=== PATIENT | female | born 1935 | race Two or more races ===

== ENCOUNTER 2023-05-17 21:57 | Emergency (ER) | payer OTHER ==
[~2023-05-17] VITALS: Ht 160 cm; Wt 69.9 kg
[2023-05-17] MEDS ORDERED: ECOTRIN81 MG (22:07)
[2023-05-17] MEDS ORDERED: ABANEU-SL TABL1 EACH (22:07)
[2023-05-17] MEDS ORDERED: SIMVASTATIN5 MG (22:08)
[2023-05-17] MEDS ORDERED: BENZONATATE150 MG (22:08)
[2023-05-17] MEDS ORDERED: LASIX20 MG (22:08)
[2023-05-17] MEDS ORDERED: AZOR 10-40 MG1 EACH (22:09)
[2023-05-17] MEDS ORDERED: FOLIC ACID0.8 M1 (22:09)
[2023-05-17] MEDS ORDERED: OPTIMAL D31250 MCG PO (22:09)
[2023-05-17] MEDS ORDERED: JENTADUETO 2.51 EACH PO (22:10)
[2023-05-17] MEDS ORDERED: SYNTHROID50 MCG PO (22:10)
[2023-05-17] MEDS ORDERED: CONZIP100 MG (22:10)
[2023-05-18] LABS: HEMOGLOBIN 10.3 g/dL (12.0-15.00); MEAN CELL VOLUME 78.8 fL (80.00-100.00); MEAN CORPUSCULAR HEMOGLOBIN 24.6 pg (27.00-32.0); MEAN CORPUSCULAR HGB CONC 31.2 g/dl (32.0-36.0); PLATELET COUNT 554 K/uL (150-450); RED BLOOD COUNT 4.18 M/uL (4.00-6.00); RED CELL DISTRIBUTION WIDTH 18.2 % (11.5-14.5)
[2023-05-18 00:21] LABS: ALBUMIN 2.4 gm/dL (3.4-5.0); BILIRUBIN TOTAL 0.58 mg/dL (0.3-1.2); CALCIUM 9.4 mg/dL (8.5-10.1); CREATININE SERUM 1.8 mg/dL (0.55-1.02); GFR 26.61; POTASSIUM 4.63 mEq/L (3.5-5.1); TOTAL PROTEIN 7.4 gm/dL (6.4-8.2)
== END 2023-05-18 06:15 | disposition home or self-care (01) ==
LOC: ER 21:57
PROVIDERS: General Practice
DX: R11.2 Nausea with vomiting, unspecified (principal); E11.9 Type 2 diabetes mellitus without complications; Z79.84 Long term (current) use of oral hypoglycemic drugs; I10 Essential (primary) hypertension; Z85.43 Personal history of malignant neoplasm of ovary

== ENCOUNTER 2023-05-23 06:17 | Inpatient (IN) | payer OTHER ==
[~2023-05-23] VITALS: Ht 152.4 cm; Wt 65.8 kg
[~2023-05-23 06:17] MED LIST: ABANEU-SL TABL1 EACH; AZOR 10-40 MG1 EACH; BENZONATATE150 MG; CONZIP100 MG; ECOTRIN81 MG; FOLIC ACID0.8 M1; JENTADUETO 2.51 EACH PO; LASIX20 MG; OPTIMAL D31250 MCG PO; SIMVASTATIN5 MG; SYNTHROID50 MCG PO
[2023-05-23 06:49] LABS: ABG PH 7.417 (7.35-7.45); ABG PO2 74.7 mmHg (80-100); ABG pCO2 33.5 mmHg (35-45)
[2023-05-23 06:50] LABS: BASE EXCESS -2.6 mmol/l; BICARBONATE 21.1 mmol/l (23-25); SaO2 94.9 %; Tco2 22.1 mmol/l; allen test SATISFACTORY; o2 24 %; puncture site RADIAL LEFT
[2023-05-23 07:38] LABS: ALBUMIN 2.3 gm/dL (3.4-5.0); BILIRUBIN TOTAL 0.51 mg/dL (0.3-1.2); BILIRUBIN,CONJUGATED 0.25 mg/dL (0.0-0.2); BILIRUBIN,UNCONJUGATED 0.26 mg/dL (0.0-0.6); CREATININE SERUM 3.24 mg/dL (0.55-1.02); GFR 13.51; GLOBULINA 4.5 G/DL (2.4-3.5); POTASSIUM 5.23 mEq/L (3.5-5.1); TOTAL PROTEIN 6.8 gm/dL (6.4-8.2)
[2023-05-23 08:22] LABS: URINE APPEARANCE Cloudy; URINE BILIRRUBIN Negative (NEGATIVE); URINE BLOOD Negative; URINE COLOR Dark Yellow; URINE GLUCOSE Negative (NEGATIVE); URINE LEUKOCYTE Small; URINE NITRATE Negative; URINE PROTEIN Trace (NEGATIVE)
[2023-05-23 08:23] LABS: URINE EPITHELIAL CELLS 57.6 uL (0.0-38.8); URINE RBC 6.6 uL (0.0-20.8); URINE WBC 45.5 uL (0.0-23.2)
[2023-05-23 08:27] LABS: HEMATOCRIT 31.3 % (36.0-45.00); HEMOGLOBIN 9.8 g/dL (12.0-15.00); MEAN CELL VOLUME 78.7 fL (80.00-100.00); MEAN CORPUSCULAR HEMOGLOBIN 24.8 pg (27.00-32.0); MEAN CORPUSCULAR HGB CONC 31.5 g/dl (32.0-36.0); PLATELET COUNT 430 K/uL (150-450); RED BLOOD COUNT 3.97 M/uL (4.00-6.00); RED CELL DISTRIBUTION WIDTH 18.4 % (11.5-14.5)
[2023-05-23 09:12] LABS: INR 1.06; PARTIAL THROMBOPLASTIN TIME 26.4 SECONDS (22.0-34.0); PROTHROMBIN TIME 11.1 SECONDS (9.0-11.5)
[2023-05-23 10:03] LABS: URINE CRYSTALS NEGATIVE /HPF
[2023-05-23 22:13] LABS: ALBUMIN 1.9 gm/dL (3.4-5.0); BILIRUBIN TOTAL 0.39 mg/dL (0.3-1.2); BILIRUBIN,CONJUGATED 0.23 mg/dL (0.0-0.2); BILIRUBIN,UNCONJUGATED 0.16 mg/dL (0.0-0.6); CALCIUM 8.6 mg/dL (8.5-10.1); CHOL HDL RATIO 2.8 (0-5.0); CREATININE SERUM 2.75 mg/dL (0.55-1.02); GFR 16.32; POTASSIUM 4.17 mEq/L (3.5-5.1); TOTAL PROTEIN 6.3 gm/dL (6.4-8.2)
[2023-05-23 22:21] LABS: C-REACTIVE PROTEIN 22.1 MG/DL (0.00-0.29)
[2023-05-23 23:26] LABS: ABG PH 7.388 (7.35-7.45); ABG PO2 77.2 mmHg (80-100); BASE EXCESS -1.7 mmol/l; Tco2 24.2 mmol/l
[2023-05-23 23:27] LABS: allen test SATISFACTORY; o2 28 %; puncture site RADIAL RIGHT
[2023-05-26 08:56] LABS: HEMATOCRIT 31.7 % (36.0-45.00); HEMOGLOBIN 10.1 g/dL (12.0-15.00); MEAN CELL VOLUME 78.7 fL (80.00-100.00); MEAN CORPUSCULAR HGB CONC 31.7 g/dl (32.0-36.0); PLATELET COUNT 322 K/uL (150-450); RED BLOOD COUNT 4.03 M/uL (4.00-6.00); RED CELL DISTRIBUTION WIDTH 18.4 % (11.5-14.5)
[2023-05-26 09:46] LABS: ALBUMIN 1.7 gm/dL (3.4-5.0); BILIRUBIN TOTAL 0.42 mg/dL (0.3-1.2); CALCIUM 8.7 mg/dL (8.5-10.1); CREATININE SERUM 1.74 mg/dL (0.55-1.02); GFR 27.68; GLOBULINA 3.9 G/DL (2.4-3.5); POTASSIUM 4.93 mEq/L (3.5-5.1); TOTAL PROTEIN 5.6 gm/dL (6.4-8.2)
[2023-05-29 06:36] LABS: HEMATOCRIT 32.4 % (36.0-45.00); HEMOGLOBIN 10.3 g/dL (12.0-15.00); MEAN CELL VOLUME 78.4 fL (80.00-100.00); MEAN CORPUSCULAR HEMOGLOBIN 24.9 pg (27.00-32.0); MEAN CORPUSCULAR HGB CONC 31.7 g/dl (32.0-36.0); PLATELET COUNT 199 K/uL (150-450); RED BLOOD COUNT 4.13 M/uL (4.00-6.00); RED CELL DISTRIBUTION WIDTH 18.1 % (11.5-14.5)
[2023-05-29 08:42] LABS: ALBUMIN 1.6 gm/dL (3.4-5.0); ALKALINE PHOSPHATASE 52 U/L (50-136); ALT/SGPT 8 U/L (12-78); ANION GAP 14 (10.0-20.0); AST/SGOT 20 U/L (15-37); BILIRUBIN TOTAL 0.26 mg/dL (0.3-1.2); BILIRUBIN,CONJUGATED < 0.10 mg/dL (0.0-0.2); BILIRUBIN,UNCONJUGATED 0.16 mg/dL (0.0-0.6); BLOOD UREA NITROGEN 31 mg/dL (7-18); BUN CREA RATIO 25 (7.0-25.0); CALCIUM 8.4 mg/dL (8.5-10.1); CARBON DIOXIDE 24 mEq/L (21-32); CHLORIDE 114 mmol/L (98-107); CREATININE SERUM 1.22 mg/dL (0.55-1.02); GFR 41.69; GLOBULINA 3.9 G/DL (2.4-3.5); GLUCOSE FASTING 84 mg/dL (65-100); OSMOLALITY SERUM 300 MOSM/KG (275-295); POTASSIUM 3.92 mEq/L (3.5-5.1); SODIUM 148 mmol/L (136-145); TOTAL PROTEIN 5.5 gm/dL (6.4-8.2)
== END 2023-05-31 18:46 | disposition home or self-care (01) | DRG 698 ==
LOC: ER 06:17 → MEDJ 20:07
PROVIDERS: General Practice; Internal Medicine; Internal Medicine Hematology & Oncology; ADMIT Internal Medicine; ATTEND Internal Medicine
PROC: BW21ZZZ Computerized Tomography (CT Scan) of Abdomen and Pelvis (ICD-10-PCS; 2023-05-23)
PROC: 0W9G3ZZ Drainage of Peritoneal Cavity, Percutaneous Approach (ICD-10-PCS; principal; 2023-05-25)
DX: N28.9 Disorder of kidney and ureter, unspecified (principal); K65.2 Spontaneous bacterial peritonitis; C80.0 Disseminated malignant neoplasm, unspecified; J90 Pleural effusion, not elsewhere classified; R18.8 Other ascites; E11.22 Type 2 diabetes mellitus with diabetic chronic kidney disease; E03.9 Hypothyroidism, unspecified; N17.9 Acute kidney failure, unspecified; D63.0 Anemia in neoplastic disease; E88.09 Other disorders of plasma-protein metabolism, not elsewhere classified

== ENCOUNTER 2023-06-10 17:31 | Inpatient (IN) | payer OTHER ==
[~2023-06-10] VITALS: Ht 157.5 cm; Wt 68.0 kg
[2023-06-10 19:44] LABS: HEMOGLOBIN 10.7 g/dL (12.0-15.00); MEAN CELL VOLUME 79.4 fL (80.00-100.00); MEAN CORPUSCULAR HEMOGLOBIN 24.3 pg (27.00-32.0); MEAN CORPUSCULAR HGB CONC 30.6 g/dl (32.0-36.0); PLATELET COUNT 225 K/uL (150-450)
[2023-06-10 20:12] LABS: INR 1.09; PARTIAL THROMBOPLASTIN TIME 21.9 SECONDS (22.0-34.0); PROTHROMBIN TIME 11.4 SECONDS (9.0-11.5)
[2023-06-10 20:42] LABS: ALBUMIN 1.9 gm/dL (3.4-5.0); BILIRUBIN TOTAL 0.58 mg/dL (0.3-1.2); BILIRUBIN,CONJUGATED 0.27 mg/dL (0.0-0.2); BILIRUBIN,UNCONJUGATED 0.31 mg/dL (0.0-0.6); CALCIUM 8.8 mg/dL (8.5-10.1); CREATININE SERUM 2.27 mg/dL (0.55-1.02); GFR 20.36; GLOBULINA 4.7 G/DL (2.4-3.5); POTASSIUM 4.14 mEq/L (3.5-5.1); TOTAL PROTEIN 6.6 gm/dL (6.4-8.2)
[2023-06-11 06:45] LABS: INR 1.1; PARTIAL THROMBOPLASTIN TIME 22.2 SECONDS (22.0-34.0); PROTHROMBIN TIME 11.5 SECONDS (9.0-11.5)
[2023-06-11 06:46] LABS: HEMATOCRIT 31.1 % (36.0-45.00); HEMOGLOBIN 9.8 g/dL (12.0-15.00); MEAN CELL VOLUME 80.2 fL (80.00-100.00); MEAN CORPUSCULAR HEMOGLOBIN 25.2 pg (27.00-32.0); MEAN CORPUSCULAR HGB CONC 31.4 g/dl (32.0-36.0); PLATELET COUNT 200 K/uL (150-450); RED BLOOD COUNT 3.88 M/uL (4.00-6.00); RED CELL DISTRIBUTION WIDTH 19.9 % (11.5-14.5)
[2023-06-11 06:57] LABS: ERYTHROCYTE SEDIMENTATION RATE 91 mm/hr
[2023-06-11 16:11] LABS: ALBUMIN 1.9 gm/dL (3.4-5.0); BILIRUBIN TOTAL 0.52 mg/dL (0.3-1.2); CALCIUM 8.5 mg/dL (8.5-10.1); CREATININE SERUM 2.02 mg/dL (0.55-1.02); GFR 23.3; GLOBULINA 4.5 G/DL (2.4-3.5); PHOSPHOROUS 3.4 mg/dL (2.5-4.9); POTASSIUM 3.95 mEq/L (3.5-5.1); TOTAL PROTEIN 6.4 gm/dL (6.4-8.2)
[2023-06-11 16:12] LABS: C-REACTIVE PROTEIN 18.4 MG/DL (0.00-0.29); TSH 10.5 uIU/mL (0.358-3.74)
[2023-06-12 10:22] LABS: HEMATOCRIT 29.1 % (36.0-45.00); MEAN CORPUSCULAR HEMOGLOBIN 24.3 pg (27.00-32.0); MEAN CORPUSCULAR HGB CONC 30.8 g/dl (32.0-36.0); PLATELET COUNT 161 K/uL (150-450); RED BLOOD COUNT 3.69 M/uL (4.00-6.00); RED CELL DISTRIBUTION WIDTH 20.3 % (11.5-14.5)
[2023-06-12 10:56] LABS: ALBUMIN 1.8 gm/dL (3.4-5.0); CALCIUM 8.2 mg/dL (8.5-10.1); CREATININE SERUM 1.93 mg/dL (0.55-1.02); GFR 24.56; PHOSPHOROUS 2.4 mg/dL (2.5-4.9); POTASSIUM 3.43 mEq/L (3.5-5.1)
[2023-06-12 11:01] LABS: ALBUMIN 1.7 gm/dL (3.4-5.0); BILIRUBIN TOTAL 0.57 mg/dL (0.3-1.2); CALCIUM 8.1 mg/dL (8.5-10.1); CREATININE SERUM 1.93 mg/dL (0.55-1.02); GFR 24.56; GLOBULINA 4.2 G/DL (2.4-3.5); POTASSIUM 3.38 mEq/L (3.5-5.1); TOTAL PROTEIN 5.9 gm/dL (6.4-8.2)
== END 2023-06-14 14:43 | disposition expired | DRG 682 ==
LOC: ER 17:31 → MEDJ 22:18
PROVIDERS: General Practice; Internal Medicine Nephrology; ADMIT Internal Medicine Hematology & Oncology; ATTEND Internal Medicine Hematology & Oncology
PROC: B020ZZZ Computerized Tomography (CT Scan) of Brain (ICD-10-PCS; principal; 2023-06-10)
PROC: 4A12X4Z Monitoring of Cardiac Electrical Activity, External Approach (ICD-10-PCS; 2023-06-10)
PROC: 0DH67UZ Insertion of Feeding Device into Stomach, Via Natural or Artificial Opening (ICD-10-PCS; 2023-06-11)
PROC: B246ZZZ Ultrasonography of Right and Left Heart (ICD-10-PCS; 2023-06-12)
PROC: 3E0G76Z Introduction of Nutritional Substance into Upper GI, Via Natural or Artificial Opening (ICD-10-PCS; 2023-06-12)
PROC: 0D2DXUZ Change Feeding Device in Lower Intestinal Tract, External Approach (ICD-10-PCS; 2023-06-12)
DX: N17.9 Acute kidney failure, unspecified (principal); G92.8 Other toxic encephalopathy; I21.9 Acute myocardial infarction, unspecified; I24.9 Acute ischemic heart disease, unspecified; C78.6 Secondary malignant neoplasm of retroperitoneum and peritoneum; J90 Pleural effusion, not elsewhere classified; C80.0 Disseminated malignant neoplasm, unspecified; F05 Delirium due to known physiological condition; R18.8 Other ascites; I13.0 Hypertensive heart and chronic kidney disease with heart failure and stage 1 through stage 4 chronic kidney disease, or unspecified chronic kidney disease; I50.9 Heart failure, unspecified; E11.65 Type 2 diabetes mellitus with hyperglycemia; E86.0 Dehydration; C50.412 Malignant neoplasm of upper-outer quadrant of left female breast; D63.0 Anemia in neoplastic disease; E86.9 Volume depletion, unspecified; D50.8 Other iron deficiency anemias; K73.9 Chronic hepatitis, unspecified; G31.89 Other specified degenerative diseases of nervous system; E11.22 Type 2 diabetes mellitus with diabetic chronic kidney disease; E03.8 Other specified hypothyroidism; N18.9 Chronic kidney disease, unspecified; Z66 Do not resuscitate; Z79.4 Long term (current) use of insulin; Z53.29 Procedure and treatment not carried out because of patient's decision for other reasons